=== PATIENT | male | born 1965 | race Caucasian/White ===

== ENCOUNTER 2020-03-07 00:28 | Emergency (ER) | payer MEDICAID ==
[~2020-03-07] VITALS: Ht 188 cm; Wt 109.1 kg
[~2020-03-07 00:28] MED LIST: ALBU18HF2 IH; CLIN-97 PO; CYCL-394 PO; GABA-347 PO; HYDR-4383 PO; IBUP-1985 PO; NA S5DRO OP; NO HOME MEDS; NOR5T PO; OMEP-50 PO; ONDA4TAB6 PO; PRED20TA PO; PROM25TA14 PO; ZOF4T PO
[2020-03-07 00:34] VITALS: BP 181/107
--- NOTE | 2020-03-07 00:48 | NUR ---
dr ventura at bedside talking with pt. he reports pts ekg is ok.
== END 2020-03-07 01:00 | disposition home or self-care (01) ==
LOC: ER 00:28
DX: R00.2 Palpitations (principal); R11.10 Vomiting, unspecified; I10 Essential (primary) hypertension; J45.909 Unspecified asthma, uncomplicated; G89.29 Other chronic pain; F12.90 Cannabis use, unspecified, uncomplicated; F15.90 Other stimulant use, unspecified, uncomplicated; F11.90 Opioid use, unspecified, uncomplicated; Z86.19 Personal history of other infectious and parasitic diseases; Z86.14 Personal history of Methicillin resistant Staphylococcus aureus infection; Z98.890 Other specified postprocedural states; Z72.89 Other problems related to lifestyle; Z88.0 Allergy status to penicillin; Z88.5 Allergy status to narcotic agent; Z88.8 Allergy status to other drugs, medicaments and biological substances; Z79.2 Long term (current) use of antibiotics; Z79.899 Other long term (current) drug therapy
CPT/HCPCS: 93005; 99283